=== PATIENT | female | born 1960 | race Caucasian/White ===

== ENCOUNTER 2019-05-20 13:13 | Inpatient (IN) | payer MEDICARE ==
[~2019-05-20] VITALS: Ht 170.2 cm; Wt 126.1 kg
--- NOTE | 2019-05-20 20:08 | NUR ---
ADMIT TO PHYSICAL REHAB FOR SERVICES OF DR PATE. PATIENT IS AWAKE AND ALERT. ORIENTED X 4. 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 NO NEW ORDERS. LEFT ARM FISTULA INTACT. PATIETN STATES SHE DIALYSISES ON MWF AT THE [facility]. NOTED RIGHT BKA WITH INCISION HEALED. PROSTHETIC IN ROOM. NO ACUTE DISTRESS NOTED. ORIENTED TO ROOM. NO DISTRESS NOTED. SEE ADMISSION ASSESSMENT AND HISTORY.
[2019-05-20 21:17] VITALS: BP 143/40
[2019-05-20 22:12] VITALS: BP 143/40; BMI 43.6
[2019-05-21 00:14] VITALS: BP 133/43
--- NOTE | 2019-05-21 01:02 | NUR ---
AWAKE AND SITTING ON SIDE OF BED. SAYS SHE CANT SLEEP. DENIES PAIN. STATES THAT THE BED IS NOT REAL COMFORTABLE. NO ACUTE DISTRESS NOTED. CALL LIGHT IN REACH.
--- NOTE | 2019-05-21 05:17 | NUR ---
SLEPT IN SHORT INTERVALS WAS MOVED TO RECLINER FOR COMFORT EARLIR IN SHIFT AND SHE WAS ABLE TO SLEEP SOME IN CHAIR. RESPIRATIONS UNLABORED. NO ACUTE CHANGES IN CONDITION THIS SHIFT. CALL LIGHT IN REACH.
[2019-05-21 06:19] VITALS: BP 135/48
[2019-05-21 07:34] LABS: BASOPHILS 0.3 % (0-2); EOSINOPHILS 3.4 % (0-7); HEMATOCRIT 32.7 % (36.0-48.0); HEMOGLOBIN 10.9 g/dL (12-16); IMMATURE GRANULOCYTES 0.3 % (0-5); LYMPHOCYTES 28.3 % (15-50); MCH 31.6 pg (26.0-34.0); MCHC 33.3 g/dL (31.0-37.0); MCV 94.8 fL (80.0-100.0); MEAN PLATELET VOLUME 10.1 fL (7.4-10.4); MONOCYTES 9.8 % (2-11); NEUTROPHILS 57.9 % (40-80); PLATELET COUNT 174 10x3/uL (130-400); RBC 3.45 10x6/uL (4.00-5.40); RDW 13.9 % (11.5-14.5); WBC 6.8 10x3/uL (4.8-10.8)
[2019-05-21 08:04] LABS: ANION GAP 13.5 mmol/L (8-16); CALCIUM 8.8 mg/dL (8.5-10.1); CARBON DIOXIDE 28.1 mmol/L (21.0-32.0); CREATININE - SERUM 4.5 mg/dL (0.6-1.3); POTASSIUM - SERUM 4.6 mmol/L (3.5-5.1)
--- NOTE | 2019-05-21 08:30 | NUR ---
PT AM MEDS ADMINISTERED. PT SITTING UP FOR BREAKFAST D/T NO DIET ORDERS BEING PLACED AND A LATE ORDER CALLED IN. PT DENIES NEEDS. WCTM.
[2019-05-21 09:36] VITALS: Ht 170.2 cm; Wt 126.1 kg
[2019-05-21] MEDS ORDERED: ISOSORBIDE MONO30 M1 PO ×2 (09:54→09:55)
[2019-05-21] MEDS ORDERED: COREG 3.1253.125 MG PO ×2 (09:55→09:56)
[2019-05-21] MEDS ORDERED: PLAVIX75 MG PO ×2 (09:57)
[2019-05-21] MEDS ORDERED: SENSIPAR60 MG PO (09:59)
[2019-05-21] MEDS ORDERED: LOW DOSE ASPIRI81 M1 PO (10:00)
[2019-05-21] MEDS ORDERED: RENAGEL800 MG PO ×2 (10:00→10:01)
[2019-05-21] MEDS ORDERED: LANTUS SOL100 UNIT/1 SC (10:01)
[2019-05-21] MEDS ORDERED: TIMOPTIC 0.5 % O5 ML EACH EYE (10:02)
[2019-05-21] MEDS ORDERED: SYNTHROID150 MCG PO (10:02)
[2019-05-21] MEDS ORDERED: TRUSOPT 2 % OPT10 ML EACH EYE (10:02)
[2019-05-21] MEDS ORDERED: NOVOLIN 70/30 110 ML SC ×3 (10:03→10:09)
[2019-05-21] MEDS ORDERED: LIPITOR40 MG PO (10:04)
[2019-05-21] MEDS ORDERED: MAG-OXIDE400 MG PO (10:04)
[2019-05-21] MEDS ORDERED: NEPHRO-VITE RX1 TAB PO (10:05)
[2019-05-21] MEDS ORDERED: PEPCID AC20 MG PO (10:05)
[2019-05-21] MEDS ORDERED: NITROSTAT0.4 MG SL (10:06)
[2019-05-21] MEDS ORDERED: HYDROXYZINE HCL10 MG PO (10:06)
[2019-05-21] MEDS ORDERED: ZOFRAN4 MG PO (10:07)
[2019-05-21] MEDS ORDERED: METOLAZONE5 MG PO (10:07)
[2019-05-21] MEDS ORDERED: COLACE100 MG PO (10:09)
[2019-05-21 12:17] VITALS: BP 120/45
[2019-05-21 19:34] VITALS: BP 172/70
--- NOTE | 2019-05-21 20:05 | NUR ---
AWAKE AND ALERT. SITTING UP IN WHEELCHAIR. ASSISTED TO BATHROOM. IS ABLE TO TRANSFER HERSELF WITH MINIMAL ASSISTANCE. LEFT ARM FISTULA INTACT. NO ACUTE DISTRESS NOTED. CALL LIGHT IN REACH.
[2019-05-21 23:21] VITALS: BP 134/56
--- NOTE | 2019-05-22 01:29 | NUR ---
SLEEPING WITH RESPIRATIONS UNLABORED. NO DISTRESS NOTED. CALL LIGHT IN REACH.
[2019-05-22 05:24] VITALS: BP 129/55
--- NOTE | 2019-05-22 05:37 | NUR ---
QUIET HOURS. NO ACUTE CHANGES IN CONDITION THIS SHIFT. NO ACUTE DISTRESS NOTED. CALL LIGHT IN REACH.
[2019-05-22 07:20] LABS: BASOPHILS 0.2 % (0-2); EOSINOPHILS 3.2 % (0-7); HEMATOCRIT 32.2 % (36.0-48.0); HEMOGLOBIN 10.4 g/dL (12-16); IMMATURE GRANULOCYTES 0.2 % (0-5); LYMPHOCYTES 28.2 % (15-50); MCH 31.6 pg (26.0-34.0); MCHC 32.3 g/dL (31.0-37.0); MONOCYTES 9.6 % (2-11); NEUTROPHILS 58.6 % (40-80); PLATELET COUNT 197 10x3/uL (130-400); RBC 3.29 10x6/uL (4.00-5.40); RDW 13.7 % (11.5-14.5); WBC 5.9 10x3/uL (4.8-10.8)
[2019-05-22 07:24] LABS: MCV 97.9 fL (80.0-100.0)
[2019-05-22 07:48] LABS: ANION GAP 17.1 mmol/L (8-16); CARBON DIOXIDE 25.5 mmol/L (21.0-32.0); POTASSIUM - SERUM 4.6 mmol/L (3.5-5.1)
[2019-05-22 07:50] LABS: CREATININE - SERUM 5.8 mg/dL (0.6-1.3)
[2019-05-22] MEDS ORDERED: LASIX40 MG PO (08:15)
--- NOTE | 2019-05-22 08:15 | NUR ---
PT AM MEDS ADMINISTERED. PT CAITLIN SEGAL. MATILDA.
[2019-05-22 12:04] VITALS: BP 138/34
[2019-05-22 19:37] VITALS: BP 166/93
--- NOTE | 2019-05-22 19:45 | NUR ---
PT LYING IN BED ON RIGHT SIDE EYES CLOSED RESTING QUIETLY. EASILY AROUSED WITH VERBAL STIMULI. DENIES ANY PAIN. NO CONCERNS VOICED. CALL LIGHT AND WATER WITHIN REACH, FALL PRECAUTIONS IN PLACE.
[2019-05-22 20:00] VITALS: BP 129/57
[2019-05-22 20:36] VITALS: BP 129/57
--- NOTE | 2019-05-22 22:09 | NUR ---
PT ASSISTED TO THE BATHROOM WITH MIN ASSIST. VOIDED WITHOUT DIFFICULTY. NO FURTHER NEEDS VOICED.
--- NOTE | 2019-05-22 23:37 | NUR ---
I have reviewed this patient and I concur with the Shift Assessment completed by the Licensed Practical Nurse today this shift.
[2019-05-23 00:01] VITALS: BP 134/48
--- NOTE | 2019-05-23 03:19 | NUR ---
RESTING IN BED WITH EYES CLOSED.
--- NOTE | 2019-05-23 06:33 | NUR ---
PT RESTING IN BED WITH EYES OPEN. NO NEEDS VOICED.
[2019-05-23 06:35] VITALS: BP 125/41
--- NOTE | 2019-05-23 07:26 | NUR ---
PT RESTING IN BED WITH EYES OPEN CALL LIGHT IN REACH NO PROBLEMS WILL MONITER
[2019-05-23 12:22] VITALS: BP 135/43
--- NOTE | 2019-05-23 16:12 | NUR ---
PT RESTING IN BED WITH EYES OPEN CALL LIGHT IN REACH WILL MONITER
[2019-05-23 18:29] VITALS: BP 143/48
--- NOTE | 2019-05-23 19:00 | NUR ---
BEDSIDE REPORT COMPLETE. PT SITTING UP IN W/C VISITING WITH FAMILY. NO CONCERNS VOICED. DENIES ANY PAIN. ALERT AND ORIENTED X4. VS STABLE. SHIFT ASSESSMENT COMPLETE. CALL LIGHT AND WATER WITHIN REACH, FALL PRECAUTIONS IN PLACE. WILL CONTINUE TO MONITOR
--- NOTE | 2019-05-23 23:29 | NUR ---
QUIET HOURS. PT LYING IN BED EYES CLOSED RESTING QUIETLY. RR EVEN AND UNLABORED
[2019-05-24 00:26] VITALS: BP 137/43
--- NOTE | 2019-05-24 02:22 | NUR ---
RECHECKED FSBS AFTER SYMPTOMATIC EPISODE OF FSBS 86 WHERE PT WAS GIVEN PB AND ELIANA CRACKERS. PT STATES SHE IS FEELING BETTER AND IS ASYMPTOMATIC. FSBS 126
--- NOTE | 2019-05-24 05:47 | NUR ---
PT LYING IN BED ALERT WATCHING TV. NO CONCERNS VOICED. DENIES ANY PAIN. RR EVEN AND UNLABORED. WILL CONTINUE TO MONITOR
[2019-05-24 06:13] VITALS: BP 146/50
--- NOTE | 2019-05-24 08:13 | NUR ---
PT AM MEDS ADMINISTERED. PT DENIES NEEDS. WCTM.
[2019-05-24 12:02] VITALS: BP 130/42
--- NOTE | 2019-05-24 17:25 | NUR ---
PT SITTING UP EATING DINNER, DENIES NEEDS. WCTM.
[2019-05-24 18:54] VITALS: BP 151/56
--- NOTE | 2019-05-24 19:17 | NUR ---
PT IS SITTING IN HER WC IN HER ROOM. ALERT AND ORIENTED X 3. DENIES ANY PAIN OR DISCOMFORT AT THIS TIME. NO NEEDS VOICED. LEFT ARM FISTULA NOTED WITH GOOD BRUITT AND THRILL. CALL LIGHT AND BEDSIDE TABLE ARE WITHIN EASY REACH.
--- NOTE | 2019-05-24 21:26 | NUR ---
I have reviewed this patient and I concur with the Shift Assessment completed by the Licensed Practical Nurse today this shift.
--- NOTE | 2019-05-24 23:25 | NUR ---
PT RESTING IN BED WITH EYES CLOSED. NO ACUTE DISTRESS NOTED.
--- NOTE | 2019-05-25 04:11 | NUR ---
RESTING IN BED WITH EYES CLOSED.
[2019-05-25 05:37] VITALS: BP 132/54
--- NOTE | 2019-05-25 07:24 | NUR ---
ALERT AND ORIENTED. SITTING IN CHAIR. NO C/O PAIN. CL IN REACH.
[2019-05-25 07:47] LABS: BASOPHILS 0.1 % (0-2); EOSINOPHILS 3.7 % (0-7); HEMOGLOBIN 10.9 g/dL (12-16); IMMATURE GRANULOCYTES 0.3 % (0-5); LYMPHOCYTES 26.3 % (15-50); MCH 31.5 pg (26.0-34.0); MCHC 32.1 g/dL (31.0-37.0); MCV 98.3 fL (80.0-100.0); MONOCYTES 8.9 % (2-11); NEUTROPHILS 60.7 % (40-80); PLATELET COUNT 179 10x3/uL (130-400); RBC 3.46 10x6/uL (4.00-5.40); RDW 13.6 % (11.5-14.5); WBC 6.8 10x3/uL (4.8-10.8)
[2019-05-25 08:01] LABS: ANION GAP 18.8 mmol/L (8-16); CARBON DIOXIDE 23.6 mmol/L (21.0-32.0); CREATININE - SERUM 7.3 mg/dL (0.6-1.3); POTASSIUM - SERUM 4.4 mmol/L (3.5-5.1)
--- NOTE | 2019-05-25 08:11 | NUR ---
SHOWER GIVEN PER NURSING.
[2019-05-25 11:41] VITALS: BP 125/52
--- NOTE | 2019-05-25 13:07 | NUR ---
PATIENT REFUSED HEATING PAD TO CERVICAL AREA.
--- NOTE | 2019-05-25 14:06 | NUR ---
PATIENT WAS ADMITTED TO REHAB FROM HER HOME. SHE IS A NEW BKA AND IS IN NEED OF MORE INTENSE THERAPY. WILL CONTINUE TO FOLLOW WITH PATIENT AND WILL ASSIT HER WITH HER NEEDS TO DISCHARGE BACK TO HER HOME. SHE LIVES IN [place] AND IS A CLIENT OF [facility] WHICH IS IN [facility]. .
[2019-05-25 18:11] VITALS: BP 155/56
--- NOTE | 2019-05-25 18:11 | NUR ---
DIALYSIS UNIT CALLED AND STATED THEY WILL DO THIS PATIENT'S DIALYSIS TOMORROW INSTEAD OF TODAY.
--- NOTE | 2019-05-25 19:05 | NUR ---
AWAKE AND ALERT. SITTING IN WHEELCHAIR WATCHING TV IN HER ROOM. RESPIRATIONS UNLABORED. LEFT ARM FISTULA INTACT. NOTED OLD RIGHT BKA. NO ACUTE DISTRESS NOTED. CALL LIGHT IN REACH.
[2019-05-25 20:37] VITALS: BP 155/56
--- NOTE | 2019-05-25 23:42 | NUR ---
AWAKE AND SITTING ON SIDE OF BED. STATES SHE IS OK JUST HER BACK WAS HURTING A LITTLE WHILE LAYING IN BED SO SHE WANTS TO SIT UP A LITTLE WHILE. NO ACUTE DISTRESS NOTED. CALL LIGHT IN REACH.
[2019-05-26 00:18] VITALS: BP 151/50
--- NOTE | 2019-05-26 02:33 | NUR ---
SLEEPING WITH RESPIRATIONS UNLABORED. NO DISTRESS NOTED.
--- NOTE | 2019-05-26 05:44 | NUR ---
QUIET HOURS. NO ACUTE CHANGES IN CONDITION THIS SHIFT. RESTING IN BED WITH NO DISTRESS NOTED.
[2019-05-26 06:06] VITALS: BP 132/47
--- NOTE | 2019-05-26 07:28 | NUR ---
PT RESTING IN BED WITH EYES OPEN CALL LIGHT IN REACH NO PROBLEMS WILL MONITERS
--- NOTE | 2019-05-26 11:53 | NUR ---
Nutrition Follow-up: Diet: renal ADA PO intake: 100% Labs noted: Glu 239H Meds noted: lasix, mobic, renagel, synthroid, lantus, novolog 70/30 Wt: 278# (05/21/19). Skin assessment reviewed. +BM Continue current nutrition regimen. RD Following.
[2019-05-26 12:40] VITALS: BP 145/78
--- NOTE | 2019-05-26 17:40 | NUR ---
PT RESTING IN BED WITH EYES OPEN CALL LIGHT IN REACH NO PROBLEMS WILL MONITER
[2019-05-26 18:43] VITALS: BP 157/45
--- NOTE | 2019-05-26 19:01 | NUR ---
AWAKE AND ALERT. SITTING IN WHEELCHAIR IN ROOM WATCHING TV. LEFT ARM FISTULA INTACT. STATES SHE HAD DIALYSIS TODAY AND WILL HAVE IT AGAIN TOMORROW TO GET BACK ON SCHEDULE. SHE STATES SHE WAS FEELING LIKE FLUID WAS GETTING BUILT UP BEFORE DIALYSIS BUT FEELS MUCH BETTER NOW. NO NEEDS VOICED AND NO DISTRESS NOTED. CALL LIGHT IN REACH.
[2019-05-26 20:56] VITALS: BP 156/45
--- NOTE | 2019-05-26 23:14 | NUR ---
URINE SPECIMEN COLLECTED AND SENT TO LAB FOR ANALYSIS.
[2019-05-26 23:37] LABS: APPEARANCE CLOUDY (CLEAR); BILIRUBIN NEGATIVE (NEGATIVE); COLOR YELLOW (YELLOW); GLUCOSE 100 mg/dL (NEGATIVE); KETONE NEGATIVE (NEGATIVE); NITRITE POSITIVE (NEGATIVE); PROTEIN 3+ mg/dL (NEGATIVE); SPECIFIC GRAVITY 1.015 (1.005-1.020); UROBILINOGEN NORMAL (NORMAL)
[2019-05-26 23:38] LABS: BACTERIA MANY /hpf (NEGATIVE); EPITHELIAL CELLS 0-5 /hpf (0-5); RED CELLS - URINE 0-5 /hpf (0-5)
[2019-05-27 00:08] VITALS: BP 140/55
--- NOTE | 2019-05-27 00:52 | NUR ---
SLEEPING IN BED WITH RESPIRAITONS UNLABORED. NO DISTRESS NOTED. CALL LIGHT IN REACH.
[2019-05-27 05:57] VITALS: BP 132/31
--- NOTE | 2019-05-27 06:10 | NUR ---
QUIET HOURS. NO ACUTE CHANGES IN CONDITION THIS SHIFT. NO C/O PAIN. NO DISTRESS NOTED. CALL LIGHT IN REACH.
--- NOTE | 2019-05-27 07:33 | NUR ---
PT RESTING IN BED WITH EYES OPEN CALL LIGHT IN REACH NO PROBLEMS WILL MONITER
[2019-05-27 12:00] VITALS: BP 146/87
--- NOTE | 2019-05-27 14:35 | NUR ---
PT RESTING IN BED WITH EYES OPEN CALL LIGHT IN REACH NO PROBLEMS WILL MONITER
--- NOTE | 2019-05-27 19:00 | NUR ---
REPORT RECEIVED. PT IN DIALYSIS.
--- NOTE | 2019-05-27 20:00 | NUR ---
TRANSPORTED PT BACK TO FLOOR FROM DIALYSIS VIA W/C. VS STABLE. PER FRANCISCA RN 3L REMOVED
[2019-05-27 20:45] VITALS: BP 123/36
--- NOTE | 2019-05-27 23:57 | NUR ---
PT LYING IN BED ON RIGHT SIDE EYES CLOSED RESTING QUIETLY. NO SIGNS OF DISTRESS NOTED.
[2019-05-28 00:01] VITALS: BP 116/43
--- NOTE | 2019-05-28 03:14 | NUR ---
PT LYING IN BED ON RIGHT SIDE EYES CLOSED RESTING QUIETLY.
[2019-05-28 05:29] VITALS: BP 123/54
--- NOTE | 2019-05-28 05:40 | NUR ---
PT SITTING UP ON SIDE OF BED ALERT AND ORIENTED X4. DENIES ANY NEEDS OR PAIN. VS STABLE. WILL CONTINUE TO MONITOR
--- NOTE | 2019-05-28 07:40 | NUR ---
PT AM MEDS ADMINISTERED. PT DENIES NEEDS. WCTM.
[2019-05-28 07:44] LABS: BASOPHILS 0.2 % (0-2); EOSINOPHILS 3.5 % (0-7); HEMATOCRIT 29.9 % (36.0-48.0); HEMOGLOBIN 9.7 g/dL (12-16); IMMATURE GRANULOCYTES 0.3 % (0-5); LYMPHOCYTES 26.1 % (15-50); MCH 31.4 pg (26.0-34.0); MCHC 32.4 g/dL (31.0-37.0); MCV 96.8 fL (80.0-100.0); MEAN PLATELET VOLUME 9.7 fL (7.4-10.4); MONOCYTES 12.1 % (2-11); NEUTROPHILS 57.8 % (40-80); PLATELET COUNT 197 10x3/uL (130-400); RBC 3.09 10x6/uL (4.00-5.40); RDW 13.6 % (11.5-14.5); WBC 6.6 10x3/uL (4.8-10.8)
[2019-05-28 08:06] LABS: ANION GAP 14.2 mmol/L (8-16); CALCIUM 8.7 mg/dL (8.5-10.1); CARBON DIOXIDE 28.6 mmol/L (21.0-32.0); CREATININE - SERUM 5.3 mg/dL (0.6-1.3); PHOSPHOROUS 6.4 mg/dL (2.5-4.9); POTASSIUM - SERUM 3.8 mmol/L (3.5-5.1)
--- NOTE | 2019-05-28 11:04 | NUR ---
CARE TEAM MEETING: PATIENT DOING WELL IN THERAPY. TENATIVE DISCHARGE DATE IS 06/02/19. WILL CONTINUE TO FOLLOW WITH PATIENT.
[2019-05-28 11:51] VITALS: BP 102/40
[2019-05-28 18:00] VITALS: BP 133/48
--- NOTE | 2019-05-28 19:30 | NUR ---
PT SITTING UP IN WHEELCHAIR. CL IN REACH. RESP EVEN AND UNLABORED. LUNG CLEAR. BOWEL ACTIVE X4. A/O X4. DENIES NEEDS AT THIS TIME. WILL CONTINUE TO MONITOR.
[2019-05-28 21:11] VITALS: BP 133/48
--- NOTE | 2019-05-28 23:00 | NUR ---
ASSISTED TO AND FROM BATHROOM. BM NOTED. ASSISTED INTO GOWN FOR BED. PT IN BED. CL IN REACH. WCTM
[2019-05-29 00:30] VITALS: BP 115/68
--- NOTE | 2019-05-29 03:00 | NUR ---
PT RESTING QUIETLY. CL IN REACH. NO DISTRESS NOTED. BED IN LOW. RESP EVEN AND UNLABORED. WCTM
--- NOTE | 2019-05-29 04:28 | NUR ---
I have reviewed this patient and I concur with the Shift Assessment completed by the Licensed Practical Nurse today this shift.
[2019-05-29 05:52] VITALS: BP 127/43
[2019-05-29 06:41] LABS: BASOPHILS 0.3 % (0-2); EOSINOPHILS 3.6 % (0-7); HEMATOCRIT 29.4 % (36.0-48.0); HEMOGLOBIN 9.7 g/dL (12-16); IMMATURE GRANULOCYTES 0.3 % (0-5); MCH 31.5 pg (26.0-34.0); MCV 95.5 fL (80.0-100.0); MEAN PLATELET VOLUME 9.5 fL (7.4-10.4); MONOCYTES 11.8 % (2-11); PLATELET COUNT 194 10x3/uL (130-400); RBC 3.08 10x6/uL (4.00-5.40); RDW 13.5 % (11.5-14.5)
[2019-05-29 06:54] LABS: ANION GAP 15.2 mmol/L (8-16); CALCIUM 8.8 mg/dL (8.5-10.1); CARBON DIOXIDE 26.7 mmol/L (21.0-32.0); POTASSIUM - SERUM 3.9 mmol/L (3.5-5.1)
[2019-05-29 06:57] LABS: CREATININE - SERUM 6.8 mg/dL (0.6-1.3)
--- NOTE | 2019-05-29 08:32 | NUR ---
PT AM MEDS ADMINISTERED. PT DENIES NEEDS. WCTM.
[2019-05-29 11:38] VITALS: BP 128/34
--- NOTE | 2019-05-29 14:45 | NUR ---
Nutrition Follow Up: Patient has been eating well. 100% x 9 meals BM x 1 (05/29) Sig Meds: Heparin, lasix, pepcid, novoLog, B complex/vit V/folate, lantus, lactulose, miralax, and colace. Labs: BUN- 68(H), Cr- 6.8(H), PO4-6.4 (H) Continue renal ADA diet. Goal of renal labs WNL. Clinical Dietitian Following
--- NOTE | 2019-05-29 17:38 | NUR ---
PT EATING DINNER, DENIES NEEDS. WCTM
--- NOTE | 2019-05-29 20:00 | NUR ---
PATIENT RECEIVED SITTING UP IN WHEELCHAIR WATCHING TV. ASSESMENT & VITAL SIGNS DONE. NO C/O PAIN OR DISTRESS. CALL LIGHT WITHIN REACH. WILL CONTINUE TO MONITOR.
[2019-05-29 22:00] VITALS: BP 147/45
--- NOTE | 2019-05-30 02:56 | NUR ---
I have reviewed this patient and I concur with the Shift Assessment completed by the Licensed Practical Nurse today this shift.
--- NOTE | 2019-05-30 03:42 | NUR ---
PATIENT EYES CLOSED. RESPIRATIONS 18 & EVEN. BED LOW. CALL LIGHT WITHIN REACH. WILL CONTINUE TO MONITOR.
[2019-05-30 05:32] VITALS: BP 114/38
--- NOTE | 2019-05-30 05:33 | NUR ---
PATIENT B/P 114/38. PATIENT ASYMPTOMATIC. PATIENT STATES "I FEEL FINE." CHARGE NURSE NOTIFIED.
[2019-05-30 07:20] VITALS: BP 101/25
--- NOTE | 2019-05-30 10:33 | NUR ---
NO C/O PAIN. HAS L ARM FISTULA WITH BRUIT AND THRILL. RESP EVEN AND UNLABORED. CL IN REACH.
[2019-05-30 12:07] VITALS: BP 118/28
[2019-05-30 12:14] VITALS: BP 116/39
--- NOTE | 2019-05-30 13:36 | NUR ---
BED BATH GIVEN. LINENS CHANGED. PATIENT PUT IN SCRUBS.
--- NOTE | 2019-05-30 13:41 | NUR ---
SITTING IN WC. NO DISTRESS NOTED. CL IN REACH.
[2019-05-30 16:44] VITALS: BP 134/48
--- NOTE | 2019-05-30 17:18 | NUR ---
NO CHANGE IN ASSESSMENT. EATING DINNER IN ROOM. CL IN REACH.
--- NOTE | 2019-05-30 19:45 | NUR ---
BEDSIDE REPORT COMPLETE. PT SITTING UP IN W/C WATCHING TV. ALERT AND ORIENTED X4. DENIES ANY NEEDS OR PAIN. VS STABLE. SHIFT ASSESSMENT COMPLETE. CALL LIGHT AND WATER WITHIN REACH. FALL PRECAUTIONS IN PLACE. WILL CONTINUE TO MONITOR
[2019-05-30 21:03] VITALS: BP 117/37
--- NOTE | 2019-05-30 23:22 | NUR ---
QUIET HOURS. PT LYING IN BED ON RIGHT SIDE EYES CLOSED RESTING QUIETLY. NO SIGNS OF DISTRESS NOTED. WILL CONTINUE TO MONITOR
--- NOTE | 2019-05-31 03:02 | NUR ---
PT LYING IN BED ON RIGHT SIDE EYES CLOSED RESTING QUIETLY.
[2019-05-31 05:57] VITALS: BP 136/50
--- NOTE | 2019-05-31 06:02 | NUR ---
PT LYING IN BED ON RIGHT SIDE EYES CLOSED RESTING QUIETLY. NO SIGNS OF DISTRESS NOTED.
--- NOTE | 2019-05-31 09:30 | NUR ---
PATIENT IS ALERT/ORIENT. USING CALL LIGHT FOR NEEDS. VOICES NO NEEDS AT THIS TIME. WILL CONTINUE WITH PLAN OF CARE
[2019-05-31 13:32] VITALS: BP 130/46
--- NOTE | 2019-05-31 14:00 | NUR ---
PATIENT HELPED IN SHOWER BY BREAKFAST AND ROOM ATTENDANT
--- NOTE | 2019-05-31 17:51 | NUR ---
PATIENT SITTING UP IN WHEELCHAIR AT BEDSIDE TO EAT SUPPER. VOICES NO NEEDS
[2019-05-31 18:18] VITALS: BP 152/59
--- NOTE | 2019-05-31 19:05 | NUR ---
BEDSIDE REPORT COMPLETE. PT SITTING UP IN W/C VISITING WITH ROOMMATE. DENIES ANY NEEDS OR PAIN. NO SIGNS OF DISTRESS NOTED. CALL LIGHT AND WATER WITHIN REACH, FALL PRECAUTIONS IN PLACE. WILL CONTINUE TO MONITOR
--- NOTE | 2019-05-31 23:39 | NUR ---
QUIET HOURS. PT LYING IN BED ON RIGHT SIDE EYES CLOSED RESTING QUIETLY. RR EVEN AND UNLABORED.
[2019-06-01 01:00] VITALS: BP 177/76
--- NOTE | 2019-06-01 03:21 | NUR ---
PT LYING IN BED ON RIGHT SIDE EYES CLOSED RESTING QUIETLY. NO SIGNS OF DISTRESS NOTED.
[2019-06-01 06:05] VITALS: BP 111/46
--- NOTE | 2019-06-01 06:13 | NUR ---
PT LYING IN BED ON RIGHT SIDE EYES CLOSED RESTING QUIETLY.
--- NOTE | 2019-06-01 08:00 | NUR ---
PATIENT IS ALERT/ORIENT. SITTING UP IN WHEELCHAIR TO EAT BREAKFAST. CALL LIGHT WITHIN REACH. VOICES NO NEEDS AT THIS TIME. WILL CONTINUE WITH PLAN OF CARE
--- NOTE | 2019-06-01 10:10 | NUR ---
PATIENT HELPED IN SHOWER WITH OCCUPATIONAL THERAPIST.
[2019-06-01 11:48] VITALS: BP 123/30
--- NOTE | 2019-06-01 11:48 | NUR ---
PATIENT IN REHAB ROOM. WORKING WITH PHYSICAL THERAPIST WITH PROSTHETIC RIGHT LEG. DENIES ANY PAIN/DISC AT THIS TIME
--- NOTE | 2019-06-01 15:10 | NUR ---
PATIENT TAKEN TO DIALYSIS CLINIC BY STAFF. THIS NURSE TALKED TO PLATE SHEAR OPERATOR. STATED THAT PATIENT WAS BEING DISCHARGE HOME (TO [facility]) ON AND THAT PATIENT NEEDED TO HAVE DIALYSIS EARLY THAT DAY DUE TO THE DRIVE HOME
--- NOTE | 2019-06-01 20:00 | NUR ---
PATIENT RECEIVED SITTING UP IN WHEELCHAIR EATING HER DINNER. ASSESSMENT & VITAL SIGNS DONE. BP DECREASED FROM 180/77 TO 139/50. NO C/O PAIN OR DISTRESS. CALL LIGHT WITHIN REACH. WILL CONTINUE TO MONITOR.
[2019-06-01 20:44] VITALS: BP 139/50
[2019-06-02 00:49] VITALS: BP 128/44
--- NOTE | 2019-06-02 01:11 | NUR ---
I have reviewed this patient and I concur with the Shift Assessment completed by the Licensed Practical Nurse today this shift.
--- NOTE | 2019-06-02 03:30 | NUR ---
PATIENT AWAKE SITTING UP ON SIDE OF BED. C/OK PAIN D/T MATTRESS. CALL LIGHT WITHIN REACH. WILL CONTINUE TO MONITOR.
--- NOTE | 2019-06-02 04:15 | NUR ---
PATIENT USED CALL LIGHT. PATIENT WANTED COLD WATER & A FAN. PATIENT GIVEN HER WATER & FAN PLACED ON FLOOR AT THE END OF HER BED. CALL LIGHT WITHIN REACH. WILL CONTINUE TO MONITOR.
[2019-06-02 06:05] VITALS: BP 124/34
[2019-06-02 06:44] LABS: BASOPHILS 0.1 % (0-2); EOSINOPHILS 3.1 % (0-7); HEMATOCRIT 28.3 % (36.0-48.0); HEMOGLOBIN 9.3 g/dL (12-16); IMMATURE GRANULOCYTES 0.1 % (0-5); LYMPHOCYTES 20.3 % (15-50); MCH 31.4 pg (26.0-34.0); MCHC 32.9 g/dL (31.0-37.0); MCV 95.6 fL (80.0-100.0); MEAN PLATELET VOLUME 8.9 fL (7.4-10.4); MONOCYTES 8.3 % (2-11); NEUTROPHILS 68.1 % (40-80); PLATELET COUNT 216 10x3/uL (130-400); RBC 2.96 10x6/uL (4.00-5.40); RDW 13.8 % (11.5-14.5)
[2019-06-02 07:00] LABS: ANION GAP 14.4 mmol/L (8-16); CALCIUM 8.6 mg/dL (8.5-10.1); CARBON DIOXIDE 29.6 mmol/L (21.0-32.0); CREATININE - SERUM 5.4 mg/dL (0.6-1.3)
--- NOTE | 2019-06-02 07:23 | NUR ---
RESTING WO DISTRESS. RESP EVEN AND UNLABORED. CL IN REACH.
[2019-06-02 11:18] VITALS: BP 118/32
--- NOTE | 2019-06-02 12:35 | NUR ---
CT HEAD DONE. PATIENT IS AWAKE AND ALERT AND BACK TO HER SELF. ( BECAME LIMP DURING THERAPY). WILL MONITOR. NO CT RESULTS AT THIS TIME.
--- NOTE | 2019-06-02 13:33 | NUR ---
SITTING IN WC AT THIS TIME. PARTICIPATED IN THERAPY. AMBULATED IN HALLWAY WITH PT.
--- NOTE | 2019-06-02 16:00 | NUR ---
NO CHANGE IN ASSESSMENT. RESP EVEN AND UNLABORED. NO C/O PAIN. CL IN REACH.
[2019-06-02 19:30] VITALS: BP 139/56
--- NOTE | 2019-06-02 19:35 | NUR ---
BEDSIDE REPORT COMPLETE. PT SITTING UP IN W/C WATCHING TV. ALERT AND ORIENTED X4. DENIES ANY NEEDS OR PAIN. NO SIGNS OF ACUTE DISTRESS NOTED. VS STABLE. SHIFT ASSESSMENT COMPLETE. CALL LIGHT AND WATER WITHIN REACH, FALL PRECAUTIONS IN PLACE. WILL CONTINUE TO MONITOR
--- NOTE | 2019-06-02 23:16 | NUR ---
QUIET HOURS. PT LYING IN BED ON RIGHT SIDE EYES CLOSED RESTING QUIETLY. RR EVEN AND UNLABORED. WILL CONTINUE TO MONITOR
[2019-06-03 00:26] VITALS: BP 124/42
--- NOTE | 2019-06-03 05:01 | NUR ---
PT LYING IN BED ON RIGHT SIDE EYES CLOSED RESTING QUIETLY. RR EVEN AND UNLABORED. WILL CONTINUE TO MONITOR
[2019-06-03 06:15] VITALS: BP 114/27
[2019-06-03 06:24] VITALS: BP 120/41
--- NOTE | 2019-06-03 07:13 | NUR ---
RESTING WO DISTRESS. RESP EVEN AND UNLABORED. CL IN REACH.
[2019-06-03] MEDS ORDERED: LASIX40 MG PO (08:33)
--- NOTE | 2019-06-03 10:17 | NUR ---
PATIENT DISCHARGING HOME TODAY WITH FAMILY. [facility] WILL RESUME CARE AT HOME. PATIENT WILL CONTINUE SAME HD DAYS, M-W-F @ 10:15 AT [facility]. NO NEW DME NEEDED AT THIS TIME. DR. GRACIA 06/11/19 @ 10:30. PATIENT CHOICE FORM AND IMFM FORMS SIGNED, COPY GIVEN TO PATIENT AND FILED IN CHART. DISCHARGE INSTRUCTIONS FAXED TO PCP, AND REVIEWED WITH PATIENT.
--- NOTE | 2019-06-03 11:11 | NUR ---
PATIENT HAD DIALYSIS SET UP FOR THIS AM EARLY. WAS TO BE FIRST PATIENT TODAY SHE IS GOING TO [place] TO [place]. DIALYSIS IS NOT HERE TILL NOON OR LATER. PATIENT WILL NOT WAIT FOR DIALYSIS STAFF TO GET HERE. SHE SAID SHE IS LEAVING WHEN HER SISTER ARRIVES TO PICK HER UP. SPOKE WITH SUSI BALTAZAR APN FOR RENAL. SHE IS AWARE PATIENT IS LEAVING WO DIALYSIS TODAY, SHE DOSEN'T WANT TO STAY UNTIL DIALYSIS STAFF IS HERE. PATIENT IS AWARE OF RISK RELATED TO MISSING HER DIALYSIS APPOINTMENT.
--- NOTE | 2019-06-03 12:41 | NUR ---
FAMILY HERE AND PATIENT IS LEAVING AT THIS TIME. ASSISTED TO CAR IN WC PER STAFF FOR DC HOME.
--- NOTE | 2019-06-04 13:43 | RHP ---
PATIENT: MARY ROSS MEDICAL RECORD: [id number] ACCOUNT: [id number] LOCATION:[facility] : 62 ADMISSION DATE: 05/20/19 REHABILITATION HISTORY AND PHYSICAL EXAMINATION POST ADMISSION PHYSICIAN EXAMINATION POST ADMISSION PHYSICAL EXAM AND HISTORY AND PHYSICAL DATE OF ADMISSION: 05/20/2019 ADMITTING DIAGNOSIS: Right endlp-gqc-dacw amputation. HISTORY OF PRESENT ILLNESS: The patient is admitted here to the rehab with complaints of a csbsi-wvk-ggrs amputation. The patient is a 58-year-old female patient with end-stage renal disease, who receives hemodialysis on Saturday, Saturday, and Saturday. She had a right hqiwk-rjy-tgie amputation on 04/17/2017 and has had only the recovery of her stump secondary to chronic wound infection secondary to severe peripheral vascular disease. On 03/05/2019 she received a prosthesis. Has been doing transfers and gait training at home with home health. It is recommended that she have more intensive training and prosthetic training to safely complete ADLs and work on her gait, awareness of her weight shifting and prosthesis and also posterior awareness with the prosthesis. She continues to require safety cues and balance cues. She tires easily, but has been pleased with her progress and wants to regain her ability to ambulate with her new prosthesis. She lives at home alone and was completely independent with her ADLs and mobility prior to her tyafy-ahj-qsyf amputation. She is currently mod-to-max assist for ADLs and mobility. Comorbidities include end-stage renal disease, severe diastolic dysfunction, 3-vessel coronary artery disease, fatty liver, CHF, dyslipidemia, anemia of chronic disease, neuropathy, dyspnea on exertion, home O2 use, chronic lower extremity edema, and history of cellulitis. PAST MEDICAL HISTORY: Significant for end-stage renal disease, hemodialysis dependent, CHF, coronary artery disease, peripheral vascular disease, diabetes, hypothyroidism, hypertension, dyslipidemia. PAST SURGICAL HISTORY: Includes PTCA with stent. She has had a right xffjw-yrv-bmyp amputation and AV fistula placed. ALLERGIES: No known drug allergies. CURRENT MEDICATIONS: Include insulin, she is on 20 units of 70/30 b.i.d. She is on Plavix 75 mg daily, aspirin 81 mg daily, Sensipar 60 mg daily, Pepcid 20 mg daily, isosorbide 60 mg daily, Mag-Ox 400 mg daily, atorvastatin 40 mg daily, folic acid 1 tab daily, carvedilol 3.125 mg b.i.d. with meals, Renagel 800 mg t.i.d. with meals. She is on heparin per protocol for renal. Synthroid 150 mcg daily, Trusopt eyedrops 1 drop in each eye b.i.d., Timoptic eyedrops 1 drop in each eye b.i.d., Colace 100 mg b.i.d. She is on Lantus 36 units at bedtime. She is on a glucose replacement protocol, Zaroxolyn 5 mg as needed for edema, Nitrostat p.r.n., Zofran 4 mg every 8 hours p.r.n. and Atarax 5 mg at bedtime p.r.n. HABITS: No current alcohol or tobacco use. FAMILY HISTORY: Noncontributory. HISTORY AND PHYSICAL [id number] MARY ROSS SOCIAL HISTORY: The patient hopes to return back home to [place] and get back to her prior level of functioning. REVIEW OF SYSTEMS: GENERAL: Does complain of weakness and fatigue. HEENT: Denies cold, cough, or congestion. CARDIOVASCULAR: She denied chest pain. PHYSICAL EXAMINATION: VITAL SIGNS: Stable, afebrile. GENERAL: A morbidly obese female, in no acute distress upon exam. HEENT: Normocephalic and atraumatic. Mucosa moist. NECK: Supple. No adenopathy. LUNGS: Clear at this time. No wheeze, rhonchi, or rales. HEART: Regular rate and rhythm. No murmurs, rubs or gallops. ABDOMEN: Soft, benign, and nondistended. Positive bowel sounds times 4. EXTREMITIES: Does have a noted right jpapy-khr-sqie amputation. It looks good. NEUROLOGIC: She does have noted proximal muscle weakness. LABORATORY DATA: White count of 6.8, H&H of 10.9 and 32.7, and platelet count is noted to be 174. Sodium is 140, potassium 4.6, BUN and creatinine of 39 and 4.5, and blood sugar is noted to be 242. ASSESSMENT: This is a 58-year-old female patient admitted to the rehab with a working diagnosis of bahcf-nlk-aluw amputation with difficulty with her prosthesis. The patient has potential to make improvement. We will institute the following multidisciplinary therapies including, but not limited to, physical, occupational, respiratory, speech, nutritional services, prosthetics, and orthotics. Given her complex medical condition and risks for further more complications, rehab cannot be offered in a lower level of care such as a skilled nurse facility. PLAN: 1. Admit to [facility] for the following intense therapies; A. Physical therapy to improve gait, all transfer skills and bed mobility to modified independent level. B. Occupational therapy to modified independent level. C. Case management to assist with discharge planning and placement options. D. Nutrition to assist with nutritional needs. E. Rehabilitation nursing to assist in monitoring the patient's underlying medical conditions and to assist with any type of bowel or bladder management. 2. The patient's current medications and medical care will be continued. 3. Placed on standard fall precautions. 4. The patient's estimated length of stay is approximately 7-10 days. 5. We will discuss this patient during care team staff meeting this week. We will watch her sugars closely, adjust medications as needed and I will see again in the a.m. TRANSINT:[id number] Voice Confirmation ID: [id number] DOCUMENT ID: [id number] LAKEISHA notes whether there has been none or any medical/functional change since admission: - No change since preadmission screen. HISTORY AND PHYSICAL [id number] GOING,MARY SUAZO attests patient continues to be appropriate for IRF: - Continues to be appropriate. ALEXIS PATE MD at 1343 CC: [id number] DICTATION DATE: 05/21/19 0849 CONVEYOR TECHNICIAN: 05/21/19 1114 DIS IN 06/03/19 [facility] [address] [place] [address]
--- NOTE | 2019-07-28 09:55 | DS ---
PATIENT:MARY ROSS :62 MEDICAL RECORD: [id number] DISCHARGE SUMMARY ADMISSION DATE: 05/20/19 DISCHARGE DATE: 06/03/19 This is a discharge dated 06/03/2019 from inpatient rehabilitation. PRIMARY DIAGNOSIS: Decreased functional ability and ability to provide activities of daily living secondary to a right BKA with chronic wound infections. SECONDARY DIAGNOSES: 1. End-stage renal disease, on chronic hemodialysis 3 times weekly. 2. Diabetes. 3. Hypothyroidism. 4. Hypertension. 5. Coronary artery disease. 6. Peripheral vascular disease. 7. Anemia of chronic disease. 8. Congestive heart failure. 9. Urinary tract infection with Escherichia coli. 10. Hyperlipidemia. CONSULTANTS FOLLOWING THIS HOSPITAL STAY: Nephrology. HOSPITAL COURSE: Full H&P is located elsewhere on the chart on this 59-year-old female who was admitted to inpatient rehab for physical therapy and occupational therapy to improve gait, transfer skills, bed mobility, and activities of daily living to a modified independent level. She was evaluated by PT and OT and their plans of care were followed. She required fci care for observation and assessment and medication administration as well as monitoring of skin integrity of the right BKA. Her surgery was in 2017, but use of prosthesis was postponed due to chronic wound infections. She had started using the prosthesis, but required more aggressive intensive therapy requiring admission to an inpatient rehab setting. She did well with therapy and was progressing towards goals. She continued on 3 times weekly hemodialysis during this hospital stay. She did have UTI with cultures positive for E. coli and was treated with Levaquin. She was considered stable for discharge on 06/03/2019 having met 3/4 long-term PT goals and met all of her OT goals. Additional physical therapy was recommended for discharge. DISCHARGE MEDICATIONS: As per discharge medication reconciliation. DISCHARGE DISPOSITION: The patient is discharged home. She will have [facility] for continued physical therapy and skilled care. She will continue Saturday, Saturday and Saturday dialysis at [facility] and will follow up with nephrology there. She will follow with primary care as directed. TRANSINT:[id number] Voice Confirmation ID: [id number] DOCUMENT ID: [id number] Dictated By: BULMARO PEPPER I have interviewed/examined the above patient and agree with these documented findings. DISCHARGE SUMMARY REPORT [id number] MARY ROSS JOHN SCOTT MD at 0958 at 0955 CC: [id number] DICTATION DATE: 07/26/19 175 SKIRT PANEL ASSEMBLER: 07/27/19 0126 DIS IN 06/03/19 [facility] [address] [id number]
== END 2019-06-03 12:43 | disposition home health service (06) | DRG 559 ==
LOC: D.REHAB 13:13
PROVIDERS: Internal Medicine Nephrology; ADMIT Emergency Medicine; ATTEND Emergency Medicine
DX: Z47.81 Encounter for orthopedic aftercare following surgical amputation (principal); N18.6 End stage renal disease; I13.2 Hypertensive heart and chronic kidney disease with heart failure and with stage 5 chronic kidney disease, or end stage renal disease; I50.30 Unspecified diastolic (congestive) heart failure; Z68.41 Body mass index [BMI] 40.0-44.9, adult; N39.0 Urinary tract infection, site not specified; Z89.511 Acquired absence of right leg below knee; E11.22 Type 2 diabetes mellitus with diabetic chronic kidney disease; Z99.2 Dependence on renal dialysis; E03.9 Hypothyroidism, unspecified; E78.5 Hyperlipidemia, unspecified; I73.9 Peripheral vascular disease, unspecified; I25.10 Atherosclerotic heart disease of native coronary artery without angina pectoris; K76.0 Fatty (change of) liver, not elsewhere classified; R53.81 Other malaise; E66.01 Morbid (severe) obesity due to excess calories; B96.20 Unspecified Escherichia coli [E. coli] as the cause of diseases classified elsewhere; D63.1 Anemia in chronic kidney disease